=== PATIENT | female | born 1960 | race Caucasian/White ===

== ENCOUNTER 2019-12-11 15:13 | Inpatient (IN) | payer MEDICAID ==
[~2019-12-11] VITALS: Ht 157.5 cm; Wt 78.9 kg
[2019-12-11 17:54] LABS: BASO # 0.2 x10^3/uL (0.0-0.2); BASO % 1 % (0-3); EOS # 0.9 x10^3/uL (0.0-0.7); EOS % 7 % (0-3); HEMATOCRIT 45.8 % (36.0-47.0); HEMOGLOBIN 15.5 g/dL (12.0-15.5); LYMPH # 4.1 x10^3/uL (1.0-4.8); LYMPH % 30 % (24-48); MEAN CORPUSCULAR HEMOGLOBIN 31 pg (25-35); MEAN CORPUSCULAR HGB CONC 34 g/dL (31-37); MEAN CORPUSCULAR VOLUME 90 fL (79-100); MONO # 0.8 x10^3/uL (0.0-1.1); MONO % 6 % (0-9); NEUT # 7.5 x10^3/uL (1.8-7.7); NEUT % 55 % (31-73); PLATELET COUNT 164 x10^3/uL (140-400); RED BLOOD COUNT 5.09 x10^6/uL (3.50-5.40); RED CELL DISTRIBUTION WIDTH 14.1 % (11.5-14.5); WHITE BLOOD COUNT 13.5 x10^3/uL (4.0-11.0)
[2019-12-11 18:03] LABS: CALCIUM 9.6 mg/dL (8.5-10.1); CREATININE 0.8 mg/dL (0.6-1.0); GFR 73.4
[2019-12-11 18:09] LABS: ALBUMIN 3.2 g/dL (3.4-5.0); ALBUMIN/GLOBULIN RATIO 0.7 (1.0-1.7); TOTAL BILIRUBIN 0.2 mg/dL (0.2-1.0); TOTAL PROTEIN 7.5 g/dL (6.4-8.2)
--- NOTE | 2019-12-11 18:19 | RAD ---
INDICATION: Reason: Wound to R great toe for a month / Spl. Instructions: / History: COMPARISON: None. IMPRESSION: Right foot: 3 views obtained. The proximal aspect of the first distal phalanx plantar aspect there is a small lucency seen at the cortex. Differential considerations would include a vascular channel within the region but if this is the patient's region of the wound causes such as early osteomyelitis are not excluded. Would also correlate with trauma to ensure that this is not secondary to a nondisplaced fracture. Electronically signed by: Avel Nguyễn MD (12/11/2019 6:16 PM) [id number]
--- NOTE | 2019-12-11 18:36 | PHYS DOC ---
Past Medical History Past Medical History: Anxiety, Diabetes-Type II (DANNA PAINTER APRN) Past Surgical History: Other Additional Past Surgical Histo: "a stent in my private area" (DANNA PAINTER APRN) Smoking Status: Current Every Day Smoker Alcohol Use: None (DANNA PAINTER APRN) General Adult EDM: Chief Complaint: OTHER COMPLAINTS HPI: HPI: Patient is a 59 year old female who presents to the emergency department with complaints of a wound to the plantar surface of her right great toe that has been ongoing for a month. She denies any known injury to the affected area. Patient reports that she has decreased sensation in her first second and third toes of both of her feet. She denies any previous diagnosis of diabetes, however she reports that she has been told that she is prediabetic before. She denies any fever, cough, shortness of breath, wheezing, rash, abdominal pain, chest pain, palpitations, nausea, vomiting, or diarrhea. She currently denies any pain in her right foot at this time. She states that she has had body aches all over and has felt fatigued since yesterday. (DANNA PAINTER APRN) Review of Systems: Review of Systems: Constitutional: Denies fever or chills. [] HENT: Denies nasal congestion or sore throat. [] Respiratory: Denies cough or shortness of breath. [] Cardiovascular: Denies chest pain or edema. [] GI: Denies abdominal pain, nausea, vomiting, or diarrhea. [] Musculoskeletal: Denies back pain or joint pain. [] Integument: See HPI Neurologic: Denies headache, see HPI Endocrine: Denies polyuria or polydipsia. [] Lymphatic: Denies swollen glands. [] Psychiatric: Denies depression or anxiety. [] (DANNA PAINTER APRN) Heart Score: Risk Factors: Risk Factors: DM, Current or recent (<one month) smoker, HTN, HLP, family history of CAD, obesity. Risk Scores: Score 0 - 3: 2.5% MACE over next 6 weeks - Discharge Home Score 4 - 6: 20.3% MACE over next 6 weeks - Admit for Clinical Observation Score 7 - 10: 72.7% MACE over next 6 weeks - Early Invasive Strategies (DANNA PAINTER APRN) Allergies: Allergies: Allergies Coded Allergies Type Severity Reaction Last Updated Verified No Known Drug Allergies 12/11/19 No (DANNA PAINTER APRN) Physical Exam: PE: Constitutional: Well developed, well nourished, no acute distress, non-toxic appearance. [] HENT: Normocephalic, atraumatic, bilateral external ears normal, nose normal. [] Eyes: PERRLA, EOMI, conjunctiva normal, no discharge. [] Neck: Normal range of motion, no stridor. [] Cardiovascular:Heart rate regular rhythm Lungs & Thorax: Respirations even and unlabored, no retractions, no respiratory distress Skin: Warm, dry; 2 cm x 1 cm open wound to the plantar surface of the right great toe, no visible foreign body, no drainage/bleeding, mild surrounding tissue erythema and warmth. Extremities: No cyanosis, ROM intact, no edema. [] Neurologic: Alert and oriented X 3, no focal deficits noted, decreased sensiti vity to pinprick of bilateral first, second, and third toes, normal sensation in bilateral fourth, and fifth toes.. [] Psychologic: Affect normal, judgement normal, mood normal. [] (DANNA PAINTER APRN) Current Patient Data: Labs: Laboratory Tests Test 12/11/19 17:44 White Blood Count 13.5 x10^3/uL (4.0-11.0) H Red Blood Count 5.09 x10^6/uL (3.50-5.40) Hemoglobin 15.5 g/dL (12.0-15.5) Hematocrit 45.8 % (36.0-47.0) Mean Corpuscular Volume 90 fL (79-100) Mean Corpuscular Hemoglobin 31 pg (25-35) Mean Corpuscular Hemoglobin Concent 34 g/dL (31-37) Red Cell Distribution Width 14.1 % (11.5-14.5) Platelet Count 164 x10^3/uL (140-400) Neutrophils (%) (Auto) 55 % (31-73) Lymphocytes (%) (Auto) 30 % (24-48) Monocytes (%) (Auto) 6 % (0-9) Eosinophils (%) (Auto) 7 % (0-3) H Basophils (%) (Auto) 1 % (0-3) Neutrophils # (Auto) 7.5 x10^3/uL (1.8-7.7) Lymphocytes # (Auto) 4.1 x10^3/uL (1.0-4.8) Monocytes # (Auto) 0.8 x10^3/uL (0.0-1.1) Eosinophils # (Auto) 0.9 x10^3/uL (0.0-0.7) H Basophils # (Auto) 0.2 x10^3/uL (0.0-0.2) Sodium Level 141 mmol/L (136-145) Potassium Level 4.0 mmol/L (3.5-5.1) Chloride Level 103 mmol/L (98-107) Carbon Dioxide Level 31 mmol/L (21-32) Anion Gap 7 (6-14) Blood Urea Nitrogen 12 mg/dL (7-20) Creatinine 0.8 mg/dL (0.6-1.0) Estimated GFR (Cockcroft-Gault) 73.4 BUN/Creatinine Ratio 15 (6-20) Glucose Level 127 mg/dL (70-99) H Lactic Acid Level 1.7 mmol/L (0.4-2.0) Calcium Level 9.6 mg/dL (8.5-10.1) Total Bilirubin 0.2 mg/dL (0.2-1.0) Aspartate Amino Transferase (AST) 13 U/L (15-37) L Alanine Aminotransferase (ALT) 19 U/L (14-59) Alkaline Phosphatase 87 U/L (46-116) Total Protein 7.5 g/dL (6.4-8.2) Albumin 3.2 g/dL (3.4-5.0) L Albumin/Globulin Ratio 0.7 (1.0-1.7) L Laboratory Tests 12/11/19 17:44 Laboratory Tests 12/11/19 17:44 Vital Signs: Vital Signs Date Time Temp Pulse Resp B/P (MAP) Pulse Ox O2 Delivery O2 Flow Rate FiO2 12/11/19 16:58 98.6 90 16 158/77 (104) 96 Room Air 98.6 (DANNA PAINTER APRN) EKG: EKG: [] (DANNA PAINTER APRN) Radiology/Procedures: Radiology/Procedures: PROCEDURE: FOOT RIGHT 3V INDICATION: Reason: Wound to R great toe for a month / Spl. Instructions: / History: COMPARISON: None. IMPRESSION: Right foot: 3 views obtained. The proximal aspect of the first distal phalanx plantar aspect there is a small lucency seen at the cortex. Differential considerations would include a vascular channel within the region but if this is the patient's region of the wound causes such as early osteomyelitis are not excluded. Would also correlate with trauma to ensure that this is not secondary to a nondisplaced fracture. Electronically signed by: Avel Nguyễn MD (12/11/2019 6:16 PM) [] (DANNA PAINTER APRN) Course & Med Decision Making: Course & Med Decision Making Pertinent Labs and Imaging studies reviewed. (See chart for details) 1904-spoke with Dr. Dutton who is the admitting physician, and care was assumed following discussion of patient. Will admit patient to [facility] for osteomyelitis and a wound of the right great toe, will give patient 1 g of Ancef IV at this time. Patient's vital signs stable. Patient remains afebrile, appears nontoxic, respirations even and unlabored. [facility] Patient's case and plan of care also discussed with Dr. Coles [] (DANNA PAINTER APRN) Lisa Disclaimer: Lisa Disclaimer: This electronic medical record was generated, in whole or in part, using a voice recognition dictation system. (DANNA PAINTER APRN) Departure Departure Impression: Primary Impression: Osteomyelitis Qualified Codes: M86.9 - Osteomyelitis, unspecified Additional Impression: Toe ulcer, right Qualified Codes: L97.512 - Non-pressure chronic ulcer of other part of right foot with fat layer exposed Disposition: ADMITTED INPATIENT Admitting Physician: MICAELA (Marija) (DANNA PAINTER APRN) Condition: STABLE Referrals: BRONSON FLAHERTY (PCP) Justicifation of Admission Dx: Justifications for Admission: Justification of Admission Dx: Yes Comments: Nonhealing wound of right great foot, possible osteomyelitis (DANNA PAINTER APRN) Attending Signature Attending Signature I have reviewed the PA/MEDIA BUYER's note and plan of care. I was available for consultation as needed during the patient's visit in the emergency department. I agree with the clinical impression, plan, and disposition. (MIKE COLES DO) DANNA PAINTER APRN Dec 11, 2019 18:36 MIKE COLES DO Dec 12, 2019 01:47
--- NOTE | 2019-12-11 19:09 | PDOC1 ---
History and Physical Date of Admission Date of Admission DATE: 12/11/19 TIME: 19:07 Identification/Chief Complaint Chief Complaint SEEN IN ER WITH SUSPECTED OSTOMYELITIS OF GREAT TOE , 59 year old female who presents to the emergency department with complaints of a wound to the plantar surface of her right great toe that has been ongoing for a month. denies any known injury to the affected area. Patient reports that she has decreased sensation in her first second and third toes of both of her feet. HAS known diagnosis of diabetes, She denies any fever, cough, shortness of breath, wheezing, rash, abdominal pain, chest pain, palpitations, nausea, vomiting, or diarrhea. She currently denies any pain in her right foot Past Medical History Past Medical History Past Medical History Past Medical History: Anxiety, Diabetes-Type II Past Surgical History: Other Additional Past Surgical Histo: "a stent in my private area" Smoking Status: Current Every Day Smoker Alcohol Use: None fhx obesity Endocrine: Diabetes Family History Family History: High Cholestrol, Hypertension Social History Smoke: 1 pack per day ALCOHOL: none Drugs: None Allergies Allergies: Coded Allergies: No Known Drug Allergies (Unverified , 12/11/19) ROS Review of System Constitutional: Denies fever or chills. [] HENT: Denies nasal congestion or sore throat. [] Respiratory: Denies cough or shortness of breath. [] Cardiovascular: Denies chest pain or edema. [] GI: Denies abdominal pain, nausea, vomiting, or diarrhea. [] Musculoskeletal: Denies back pain or joint pain. [] Integument: See HPI Neurologic: Denies headache, see HPI Endocrine: Denies polyuria or polydipsia. [] Lymphatic: Denies swollen glands. [] Psychiatric: Denies depression or anxiety. [] 14 pt ros otherwise neg Eyes: No Blurry vision, No Decreased vision, No Double vision, No Dry eyes, No Excessive tearing, No Eye Pain, No Itchy Eyes, No Loss of vision, No Photophobia, No Scotomata, No Uses contacts, No Uses glasses, No Other ALLERGY AND IMMUNOLOGY: No: Hives, Insect Bite Sensitivity, Itchy/Watery Eyes, Nasal Congestion, Post Nasal Drip, Seasonal Allergies, Other Hematological and Lymphatic: No: Bleeding Problems, Blood Clots, Blood Transfusions, Brusing, Night Sweats, Pallor, Swollen Lymph Nodes, Other Respiratory: No: Cough, Hemoptysis, Orthopnea, Pleuritic Pain, Shortness of breath, SOB with excertion, Sputum Changes, Stridor, Tachypnea, Wheezing, Other Cardiovascular: No Chest Pain, No Palpitations, No Orthopnea, No Paroxysmal Noc. Dyspnea, No Edema, No Lt Headedness, No Other Gastrointestinal: No Nausea, No Vomiting, No Abdominal Pain, No Diarrhea, No Constipation, No Melena, No Hematochezia, No Other Musculoskeletal: Yes Gait Disturbance, Yes Joint Stiffness Neurological: Yes Gait Disturbance Physical Exam Physical Exam Constitutional: Well developed, well nourished, no acute distress, non-toxic appearance. [] HENT: Normocephalic, atraumatic, bilateral external ears normal, nose normal. [] Eyes: PERRLA, EOMI, conjunctiva normal, no discharge. [] Neck: Normal range of motion, no stridor. [] Cardiovascular:Heart rate regular rhythm Lungs & Thorax: Respirations even and unlabored, no retractions, no respiratory distress Skin: Warm, dry; 2 cm x 1 cm open wound to the plantar surface of the right great toe, no visible foreign body, no drainage/bleeding, mild surrounding tissue erythema and warmth. Extremities: No cyanosis, ROM intact, no edema. [] Neurologic: Alert and oriented X 3, no focal deficits noted, decreased sensitivity to pinprick of bilateral first, second, and third toes, normal sensation in bilateral fourth, and fifth toes.. [] Psychologic: Affect normal, judgment normal, mood normal. [] General: Alert, Oriented X3, Cooperative, No acute distress HEENT: EOMI Lungs: Clear to auscultation, Normal air movement Breasts: Not examined Abdomen: Normal bowel sounds, Soft Rectal Exam: not examined PELVIC: Examination not indicated Extremities: No cyanosis, No edema Neuro: Normal speech, Cranial nerves 3-12 NL Psych/Mental Status: Mental status NL, Mood NL Vitals Vitals Vital Signs Date Time Temp Pulse Resp B/P (MAP) Pulse Ox O2 Delivery O2 Flow Rate FiO2 12/11/19 16:58 98.6 90 16 158/77 (104) 96 Room Air 98.6 Labs Labs Laboratory Tests Test 12/11/19 17:44 White Blood Count 13.5 x10^3/uL (4.0-11.0) Red Blood Count 5.09 x10^6/uL (3.50-5.40) Hemoglobin 15.5 g/dL (12.0-15.5) Hematocrit 45.8 % (36.0-47.0) Mean Corpuscular Volume 90 fL (79-100) Mean Corpuscular Hemoglobin 31 pg (25-35) Mean Corpuscular Hemoglobin Concent 34 g/dL (31-37) Red Cell Distribution Width 14.1 % (11.5-14.5) Platelet Count 164 x10^3/uL (140-400) Neutrophils (%) (Auto) 55 % (31-73) Lymphocytes (%) (Auto) 30 % (24-48) Monocytes (%) (Auto) 6 % (0-9) Eosinophils (%) (Auto) 7 % (0-3) Basophils (%) (Auto) 1 % (0-3) Neutrophils # (Auto) 7.5 x10^3/uL (1.8-7.7) Lymphocytes # (Auto) 4.1 x10^3/uL (1.0-4.8) Monocytes # (Auto) 0.8 x10^3/uL (0.0-1.1) Eosinophils # (Auto) 0.9 x10^3/uL (0.0-0.7) Basophils # (Auto) 0.2 x10^3/uL (0.0-0.2) Sodium Level 141 mmol/L (136-145) Potassium Level 4.0 mmol/L (3.5-5.1) Chloride Level 103 mmol/L (98-107) Carbon Dioxide Level 31 mmol/L (21-32) Anion Gap 7 (6-14) Blood Urea Nitrogen 12 mg/dL (7-20) Creatinine 0.8 mg/dL (0.6-1.0) Estimated GFR (Cockcroft-Gault) 73.4 BUN/Creatinine Ratio 15 (6-20) Glucose Level 127 mg/dL (70-99) Lactic Acid Level 1.7 mmol/L (0.4-2.0) Calcium Level 9.6 mg/dL (8.5-10.1) Total Bilirubin 0.2 mg/dL (0.2-1.0) Aspartate Amino Transf (AST/SGOT) 13 U/L (15-37) Alanine Aminotransferase (ALT/SGPT) 19 U/L (14-59) Alkaline Phosphatase 87 U/L (46-116) Total Protein 7.5 g/dL (6.4-8.2) Albumin 3.2 g/dL (3.4-5.0) Albumin/Globulin Ratio 0.7 (1.0-1.7) Laboratory Tests Test 12/11/19 17:44 White Blood Count 13.5 x10^3/uL (4.0-11.0) Red Blood Count 5.09 x10^6/uL (3.50-5.40) Hemoglobin 15.5 g/dL (12.0-15.5) Hematocrit 45.8 % (36.0-47.0) Mean Corpuscular Volume 90 fL (79-100) Mean Corpuscular Hemoglobin 31 pg (25-35) Mean Corpuscular Hemoglobin Concent 34 g/dL (31-37) Red Cell Distribution Width 14.1 % (11.5-14.5) Platelet Count 164 x10^3/uL (140-400) Neutrophils (%) (Auto) 55 % (31-73) Lymphocytes (%) (Auto) 30 % (24-48) Monocytes (%) (Auto) 6 % (0-9) Eosinophils (%) (Auto) 7 % (0-3) Basophils (%) (Auto) 1 % (0-3) Neutrophils # (Auto) 7.5 x10^3/uL (1.8-7.7) Lymphocytes # (Auto) 4.1 x10^3/uL (1.0-4.8) Monocytes # (Auto) 0.8 x10^3/uL (0.0-1.1) Eosinophils # (Auto) 0.9 x10^3/uL (0.0-0.7) Basophils # (Auto) 0.2 x10^3/uL (0.0-0.2) Sodium Level 141 mmol/L (136-145) Potassium Level 4.0 mmol/L (3.5-5.1) Chloride Level 103 mmol/L (98-107) Carbon Dioxide Level 31 mmol/L (21-32) Anion Gap 7 (6-14) Blood Urea Nitrogen 12 mg/dL (7-20) Creatinine 0.8 mg/dL (0.6-1.0) Estimated GFR (Cockcroft-Gault) 73.4 BUN/Creatinine Ratio 15 (6-20) Glucose Level 127 mg/dL (70-99) Lactic Acid Level 1.7 mmol/L (0.4-2.0) Calcium Level 9.6 mg/dL (8.5-10.1) Total Bilirubin 0.2 mg/dL (0.2-1.0) Aspartate Amino Transf (AST/SGOT) 13 U/L (15-37) Alanine Aminotransferase (ALT/SGPT) 19 U/L (14-59) Alkaline Phosphatase 87 U/L (46-116) Total Protein 7.5 g/dL (6.4-8.2) Albumin 3.2 g/dL (3.4-5.0) Albumin/Globulin Ratio 0.7 (1.0-1.7) Images Images INDICATION: Reason: PVD /leg pain COMPARISON: None. FINDINGS: Spectral Doppler, color and grayscale ultrasound images obtained of the bilateral leg arterial system. Biphasic or triphasic waveforms are seen throughout bilateral leg arterial system. No evidence of high-grade stenosis or occlusion of the major arteries of the bilateral legs. IMPRESSION: * No high-grade stenosis or occlusion is seen of the major arteries of the bilateral legs. Electronically signed by: Aliya Nguyễn MD (12/11/2019 8:27 PM) [id number] DICTATED and SIGNED BY: ALIYA NGUYỄN MD DATE: 12/11/192026 INDICATION: Reason: Wound to R great toe for a month / Spl. Instructions: / History: COMPARISON: None. IMPRESSION: Right foot: 3 views obtained. The proximal aspect of the first distal phalanx plantar aspect there is a small lucency seen at the cortex. Differential considerations would include a vascular channel within the region but if this is the patient's region of the wound causes such as early osteomyelitis are not excluded. Would also correlate with trauma to ensure that this is not secondary to a nondisplaced fracture. Electronically signed by: Aliya Nguyễn MD (12/11/2019 6:16 PM) [id number] DICTATED and SIGNED BY: ALIYA NUGYỄN MD DATE: 12/11/191815 VTE Prophylaxis Ordered VTE Prophylaxis Devices: Contraindicated VTE Pharmacological Prophylaxi: Yes Assessment/Plan Assessment/Plan impression ON X-RAY proximal aspect of the first distal phalanx right great toe, plantar aspect there is a small lucency seen at the cortex. Differential considerations would include a vascular channel within the early osteomyelitis not excluded. No evidence of high-grade stenosis or occlusion of the major arteries of the bilateral legs. by arterial doppler 12/10 Diabetes Morbid obesity Tobacco abuse disorder PLAN ADMIT IV ROCEPHIN BLOOD CULTURES VANC PER PHARMACY iv ARTERIAL DOPPLER STUDY BOTH LEGS Consult DR NUNO dvt prophylaxis Justicifation of Admission Dx: Justifications for Admission: Justification of Admission Dx: Yes Cellulitis: Cellulitis FÉLIX GAN MD Dec 11, 2019 19:09
[2019-12-11] MEDS ORDERED: cloNIDine HCL 0.1 MG TABLET PO PRN (19:30)
[2019-12-11] MEDS ORDERED: ACETAMINOPHEN 325 MG TABLET. PO PRN (19:30)
[2019-12-11] MEDS ORDERED: ALBUTEROL SULFATE 2.5 MG/3 ML NEBU. NEB PRN (19:30)
[2019-12-11] MEDS ORDERED: guaiFENesin ORAL 200 MG/10 ML LIQUID. PO PRN (19:30)
[2019-12-11] MEDS ORDERED: ceFAZolin SODIUM IV Push 1 GM VIAL. IVP ONE (19:30)
[2019-12-11] MEDS ORDERED: 0.9 % SODIUM CHLORIDE 10 ML DISP.SYRIN. IV PRN (19:30)
[2019-12-11] MEDS ORDERED: DOCUSATE SODIUM 100 MG CAPSULE. PO PRN (19:30)
[2019-12-11] MEDS ORDERED: ONDANSETRON PF 4 MG/2 ML VIAL. IV PRN (19:30)
[2019-12-11] MEDS ORDERED: SODIUM PHOSPHATES 19/7GM 133 ML ENEMA. PR PRN (19:30)
[2019-12-11] MEDS ORDERED: LORazepam 0.5 MG TABLET PO PRN (19:30)
[2019-12-11] MEDS ORDERED: MAG HYDROX/ALUMINUM HYD/SIMETH 30 ML ORAL.SUSP PO PRN (19:30)
[2019-12-11] MEDS ORDERED: ZOLPIDEM 5 MG TABLET. PO PRN (19:30)
[2019-12-11] MEDS: IV NORMAL SALINE 1000ML BAG 1,000 ML IV SCH (19:33)
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
[2019-12-11 20:29] VITALS: BP 154/71
[2019-12-11] MEDS ORDERED: VANCOMYCIN 2 GM in IV NORMAL SALINE 500ML BAG 500 ML IV ONE (20:30)
--- NOTE | 2019-12-11 20:30 | RAD ---
INDICATION: Reason: PVD /leg pain COMPARISON: None. FINDINGS: Spectral Doppler, color and grayscale ultrasound images obtained of the bilateral leg arterial system. Biphasic or triphasic waveforms are seen throughout bilateral leg arterial system. No evidence of high-grade stenosis or occlusion of the major arteries of the bilateral legs. IMPRESSION: * No high-grade stenosis or occlusion is seen of the major arteries of the bilateral legs. Electronically signed by: Avel Nguyễn MD (12/11/2019 8:27 PM) [id number]
[2019-12-11] MEDS: VANCOMYCIN PER PHARMACY MC PRN (20:50)
--- NOTE | 2019-12-11 20:53 | NUR ---
Pharmacy Vancomycin Dosing Note S:Consulted to monitor and dose vancomycin started 12/11/19. O:ARABELLA OROSCO is a 59 year old F with Osteomyelitis. Height: 5 feet, 2 inches Weight: 79.0 kg [place] Body Weight: 50.10 Adjusted Body Weight: 61.66 Dosing Weight: Actual Other Antibiotics: ROCEPHIN LABS: Last BUN: 12 Last Creatinine: 0.8 Creatinine Clearance: 73 mL/min Last WBC: 13.5 Last Procalcitonin: Tmax (past 24 hours): 98.6 Vancomycin Dosing: Loading Dose: 2000 mg x1 Dosing Weight: Actual Target Trough: 15-20 A: Based on: weight and renal function P: 1. Begin Vancomycin 1250 mg IV q12h 2. Follow up Trough level on 12/13/19 at 0930 3. Pharmacy will continue to monitor, follow and adjust therapy as needed. Gem Clark RPH, 12/11/19 [id number]
[2019-12-11] MEDS: PIPERACILLIN/TAZOBACTAM 3.375 GM in IV NORMAL SALINE 50ML 50 ML IV SCH (22:17)
[2019-12-11] MEDS: ENOXAPARIN 40 MG/0.4 ML SYRINGE. SQ SCH (22:20)
[2019-12-11 23:00] VITALS: BP 128/71
[2019-12-12 03:00] VITALS: BP 150/68
[2019-12-12 04:52] LABS: BILIRUBIN,URINE NEGATIVE (NEG); CLARITY,URINE CLEAR; COLOR,URINE YELLOW; NITRITE,URINE NEGATIVE (NEG); PH,URINE 6.5 (<5.0-8.0); PROTEIN,URINE NEGATIVE (NEG-TRACE); UROBILINOGEN,URINE 0.2 mg/dL (0.2 mg/dL)
[2019-12-12 04:58] LABS: AMPHETAMINE/METHAMPHETAMINE NEG (NEG); BARBITURATES NEG (NEG); BENZODIAZEPINES POS (NEG); CANNABINOIDS POS (NEG); COCAINE NEG (NEG); METHADONE NEG (NEG); OPIATES NEG (NEG); PHENCYCLIDINE NEG (NEG)
[2019-12-12 05:03] LABS: BACTERIA,URINE 0 /HPF (0-FEW); RBC,URINE 0 /HPF (0-2); SQUAMOUS EPITHELIAL CELL,UR MOD /LPF
[2019-12-12] MEDS: PIPERACILLIN/TAZOBACTAM 3.375 GM in IV NORMAL SALINE 50ML 50 ML IV SCH ×3 (05:41→18:00)
[2019-12-12 07:00] VITALS: BP 153/75
[2019-12-12 08:12] LABS: CREATININE 0.8 mg/dL (0.6-1.0); GFR 73.4
[2019-12-12] MEDS: IV NORMAL SALINE 1000ML BAG 1,000 ML IV SCH ×2 (08:37→15:26)
[2019-12-12] MEDS: VANCOMYCIN 1.25 GM in IV NORMAL SALINE 250ML 250 ML IV SCH ×2 (10:24→22:04)
[2019-12-12 11:00] VITALS: BP 148/72
--- NOTE | 2019-12-12 11:57 | PDOC2 ---
CONSULT Date of Service Date of Service DATE: 12/12/19 TIME: 11:53 Reason for Consult Reason for Consult: Right great toe wound Identification/Chief Complaint Chief Complaint SEEN IN ER WITH SUSPECTED OSTOMYELITIS OF GREAT TOE , 59 year old female who presents to the emergency department with complaints of a wound to the plantar surface of her right great toe that has been ongoing for a month. denies any known injury to the affected area. Patient reports that she has decreased sensation in her first second and third toes of both of her feet. HAS known diagnosis of diabetes, She denies any fever, cough, shortness of breath, wheezing, rash, abdominal pain, chest pain, palpitations, nausea, vomiting, or diarrhea. She currently denies any pain in her right foot She denies any fevers, chills, rigors. She is not sure if she has diabetes tells me she may have prediabetes Source Source: Patient History of Present Illness Reason for Visit: 59-year-old woman who was admitted yesterday with a right great toe wound and concern for osteomyelitis. Her x-ray was nonspecific. She states that she has had the wound for about a week, is unsure what caused it, states that has not been getting better with placement of Neosporin. She does smoke, we discussed the need for smoking cessation. Past Medical History Endocrine: Diabetes Family History Family History: High Cholestrol, Hypertension Social History 1 pack per day ALCOHOL: none Drugs: None Current Problem List Problem List Problems Medical Problems: (1) Toe ulcer, right Status: Acute Current Medications Current Medications Current Medications Cefazolin Sodium (Ancef) 1 gm 1X ONCE IVP Last administered on 12/11/19at 19:32; Start 12/11/19 at 19:30; Stop 12/11/19 at 19:31; Status DC Sodium Chloride (Normal Saline Flush) 3 ml QSHIFT PRN IV AFTER MEDS AND BLOOD DRAWS; Start 12/11/19 at 19:30 Sodium Chloride 1,000 ml @ 100 mls/hr Q10H IV Last administered on 12/12/19at 08:37; Start 12/11/19 at 19:26 Ondansetron HCl (Zofran) 4 mg PRN Q4HRS PRN IV NAUSEA/VOMITING Last administered on 12/12/19at 10:28; Start 12/11/19 at 19:30 Zolpidem Tartrate (Ambien) 5 mg PRN QHS PRN PO INSOMNIA; Start 12/11/19 at 19:30 Acetaminophen (Tylenol) 650 mg PRN Q4HRS PRN PO TEMP OVER 100.4F OR MILD PAIN; Start 12/11/19 at 19:30 Al Hydroxide/Mg Hydroxide (Mylanta Plus Xs) 30 ml PRN DAILY PRN PO HEARTBURN / GAS; Start 12/11/19 at 19:30 Clonidine HCl (Catapres) 0.1 mg PRN Q6HRS PRN PO SBP>160 OR DBP>90; Start 12/11/19 at 19:30 Sodium Monofluorophosphate (Fleet Adult) 133 ml PRN DAILY PRN [place] CONSTIPATION; Start 12/11/19 at 19:30 Docusate Sodium (Colace) 100 mg PRN BID PRN PO HARD STOOLS; Start 12/11/19 at 19:30 Albuterol Sulfate (Ventolin Neb Soln) 2.5 mg PRN Q4HRS PRN NEB SHORTNESS OF BREATH; Start 12/11/19 at 19:30 Guaifenesin (Robitussin) 200 mg PRN Q4HRS PRN PO COUGH; Start 12/11/19 at 19:30 Lorazepam (Ativan) 0.5 mg PRN Q4HRS PRN PO ANXIETY / AGITATION; Start 12/11/19 at 19:30 Enoxaparin Sodium (Lovenox 40mg Syringe) 40 mg Q24H SQ Last administered on 12/11/19at 22:20; Start 12/11/19 at 21:00 Vancomycin HCl (Vanco Per Pharmacy) 1 each PRN DAILY PRN [facility] SEE COMMENTS Last administered on 12/11/19at 20:50; Start 12/11/19 at 19:30 Piperacillin Sod/ Tazobactam Sod 3.375 gm/Sodium Chloride 50 ml @ 100 mls/hr Q6HRS IV Last administered on 12/12/19at 05:41; Start 12/11/19 at 20:00 Vancomycin HCl 2 gm/Sodium Chloride 500 ml @ 250 mls/hr 1X ONCE IV Last administered on 12/11/19at 22:51; Start 12/11/19 at 20:30; Stop 12/11/19 at 22:29; Status DC Vancomycin HCl 1.25 gm/Sodium Chloride 250 ml @ 167 mls/hr Q12H IV Last administered on 12/12/19at 10:24; Start 12/12/19 at 10:00 Vancomycin HCl (Vancomycin Trough Level) 1 each 1X ONCE MC ; Start 12/13/19 at 09:30; Stop 12/13/19 at 09:31 Allergies Allergies: Coded Allergies: No Known Drug Allergies (Unverified , 12/11/19) Physical Exam Physical Exam Ulcer on the plantar aspect of the great toe, excellent 2+ palpable dorsalis pedis pulse same foot General: Alert, Oriented X3, Cooperative, No acute distress HEENT: Atraumatic, PERRLA Lungs: Clear to auscultation Heart: Regular rate, Normal S1, Normal S2, No murmurs Abdomen: Normal bowel sounds, Soft Extremities: No clubbing, No cyanosis, Normal pulses Skin: Other (Great toe lesion as described above otherwise no lesions) Neuro: Normal gait, Normal speech, Strength at 5/5 X4 ext, Normal tone, Cranial nerves 3-12 NL Psych/Mental Status: Mental status NL MUSCULOSKELETAL: No joint tenderness, No deformity, No swelling Vitals VITALS Vital Signs Date Time Temp Pulse Resp B/P (MAP) Pulse Ox O2 Delivery O2 Flow Rate FiO2 12/12/19 11:00 98.0 80 18 148/72 (97) 96 Room Air 98.0 12/11/19 23:00 2.0 Labs Labs Laboratory Tests Test 12/11/19 17:44 12/12/19 04:37 12/12/19 07:00 12/12/19 10:32 White Blood Count 13.5 x10^3/uL (4.0-11.0) Red Blood Count 5.09 x10^6/uL (3.50-5.40) Hemoglobin 15.5 g/dL (12.0-15.5) Hematocrit 45.8 % (36.0-47.0) Mean Corpuscular Volume 90 fL (79-100) Mean Corpuscular Hemoglobin 31 pg (25-35) Mean Corpuscular Hemoglobin Concent 34 g/dL (31-37) Red Cell Distribution Width 14.1 % (11.5-14.5) Platelet Count 164 x10^3/uL (140-400) Neutrophils (%) (Auto) 55 % (31-73) Lymphocytes (%) (Auto) 30 % (24-48) Monocytes (%) (Auto) 6 % (0-9) Eosinophils (%) (Auto) 7 % (0-3) Basophils (%) (Auto) 1 % (0-3) Neutrophils # (Auto) 7.5 x10^3/uL (1.8-7.7) Lymphocytes # (Auto) 4.1 x10^3/uL (1.0-4.8) Monocytes # (Auto) 0.8 x10^3/uL (0.0-1.1) Eosinophils # (Auto) 0.9 x10^3/uL (0.0-0.7) Basophils # (Auto) 0.2 x10^3/uL (0.0-0.2) Sodium Level 141 mmol/L (136-145) Potassium Level 4.0 mmol/L (3.5-5.1) Chloride Level 103 mmol/L (98-107) Carbon Dioxide Level 31 mmol/L (21-32) Anion Gap 7 (6-14) Blood Urea Nitrogen 12 mg/dL (7-20) Creatinine 0.8 mg/dL (0.6-1.0) 0.8 mg/dL (0.6-1.0) Estimated GFR (Cockcroft-Gault) 73.4 73.4 BUN/Creatinine Ratio 15 (6-20) Glucose Level 127 mg/dL (70-99) Lactic Acid Level 1.7 mmol/L (0.4-2.0) Calcium Level 9.6 mg/dL (8.5-10.1) Total Bilirubin 0.2 mg/dL (0.2-1.0) Aspartate Amino Transf (AST/SGOT) 13 U/L (15-37) Alanine Aminotransferase (ALT/SGPT) 19 U/L (14-59) Alkaline Phosphatase 87 U/L (46-116) Total Protein 7.5 g/dL (6.4-8.2) Albumin 3.2 g/dL (3.4-5.0) Albumin/Globulin Ratio 0.7 (1.0-1.7) Urine Collection Type Unknown Urine Color Yellow Urine Clarity Clear Urine pH 6.5 (<5.0-8.0) Urine Specific [place] 1.020 (1.000-1.030) Urine Protein Negative mg/dL (NEG-TRACE) Urine Glucose (UA) Negative mg/dL (NEG) Urine Ketones (Stick) Negative mg/dL (NEG) Urine Blood Negative (NEG) Urine Nitrite Negative (NEG) Urine Bilirubin Negative (NEG) Urine Urobilinogen Dipstick 0.2 mg/dL (0.2 mg/dL) Urine Leukocyte Esterase Negative (NEG) Urine RBC 0 /HPF (0-2) Urine WBC 1-4 /HPF (0-4) Urine Squamous Epithelial Cells Mod /LPF Urine Bacteria 0 /HPF (0-FEW) Urine Opiates Screen Neg (NEG) Urine Methadone Screen Neg (NEG) Urine Barbiturates Neg (NEG) Urine Phencyclidine Screen Neg (NEG) Urine Amphetamine/Methamphetamine Neg (NEG) Urine Benzodiazepines Screen Pos (NEG) Urine Cocaine Screen Neg (NEG) Urine Cannabinoids Screen Pos (NEG) Urine Ethyl Alcohol Neg (NEG) SARS-CoV-2 Antigen (Rapid) Negative (NEGATIVE) Laboratory Tests Test 12/11/19 17:44 12/12/19 04:37 12/12/19 07:00 12/12/19 10:32 White Blood Count 13.5 x10^3/uL (4.0-11.0) Red Blood Count 5.09 x10^6/uL (3.50-5.40) Hemoglobin 15.5 g/dL (12.0-15.5) Hematocrit 45.8 % (36.0-47.0) Mean Corpuscular Volume 90 fL (79-100) Mean Corpuscular Hemoglobin 31 pg (25-35) Mean Corpuscular Hemoglobin Concent 34 g/dL (31-37) Red Cell Distribution Width 14.1 % (11.5-14.5) Platelet Count 164 x10^3/uL (140-400) Neutrophils (%) (Auto) 55 % (31-73) Lymphocytes (%) (Auto) 30 % (24-48) Monocytes (%) (Auto) 6 % (0-9) Eosinophils (%) (Auto) 7 % (0-3) Basophils (%) (Auto) 1 % (0-3) Neutrophils # (Auto) 7.5 x10^3/uL (1.8-7.7) Lymphocytes # (Auto) 4.1 x10^3/uL (1.0-4.8) Monocytes # (Auto) 0.8 x10^3/uL (0.0-1.1) Eosinophils # (Auto) 0.9 x10^3/uL (0.0-0.7) Basophils # (Auto) 0.2 x10^3/uL (0.0-0.2) Sodium Level 141 mmol/L (136-145) Potassium Level 4.0 mmol/L (3.5-5.1) Chloride Level 103 mmol/L (98-107) Carbon Dioxide Level 31 mmol/L (21-32) Anion Gap 7 (6-14) Blood Urea Nitrogen 12 mg/dL (7-20) Creatinine 0.8 mg/dL (0.6-1.0) 0.8 mg/dL (0.6-1.0) Estimated GFR (Cockcroft-Gault) 73.4 73.4 BUN/Creatinine Ratio 15 (6-20) Glucose Level 127 mg/dL (70-99) Lactic Acid Level 1.7 mmol/L (0.4-2.0) Calcium Level 9.6 mg/dL (8.5-10.1) Total Bilirubin 0.2 mg/dL (0.2-1.0) Aspartate Amino Transf (AST/SGOT) 13 U/L (15-37) Alanine Aminotransferase (ALT/SGPT) 19 U/L (14-59) Alkaline Phosphatase 87 U/L (46-116) Total Protein 7.5 g/dL (6.4-8.2) Albumin 3.2 g/dL (3.4-5.0) Albumin/Globulin Ratio 0.7 (1.0-1.7) Urine Collection Type Unknown Urine Color Yellow Urine Clarity Clear Urine pH 6.5 (<5.0-8.0) Urine Specific [place] 1.020 (1.000-1.030) Urine Protein Negative mg/dL (NEG-TRACE) Urine Glucose (UA) Negative mg/dL (NEG) Urine Ketones (Stick) Negative mg/dL (NEG) Urine Blood Negative (NEG) Urine Nitrite Negative (NEG) Urine Bilirubin Negative (NEG) Urine Urobilinogen Dipstick 0.2 mg/dL (0.2 mg/dL) Urine Leukocyte Esterase Negative (NEG) Urine RBC 0 /HPF (0-2) Urine WBC 1-4 /HPF (0-4) Urine Squamous Epithelial Cells Mod /LPF Urine Bacteria 0 /HPF (0-FEW) Urine Opiates Screen Neg (NEG) Urine Methadone Screen Neg (NEG) Urine Barbiturates Neg (NEG) Urine Phencyclidine Screen Neg (NEG) Urine Amphetamine/Methamphetamine Neg (NEG) Urine Benzodiazepines Screen Pos (NEG) Urine Cocaine Screen Neg (NEG) Urine Cannabinoids Screen Pos (NEG) Urine Ethyl Alcohol Neg (NEG) SARS-CoV-2 Antigen (Rapid) Negative (NEGATIVE) Images Images I independently reviewed her arterial duplex todaythis does not suggest any significant arterial occlusive disease and is consistent with her physical exam with palpable pulses at the ankle We independently reviewed her plain films of the footthese are nonspecific and do not specifically confirm any diagnosis of osteomyelitis Assessment/Plan Assessment/Plan From a vascular standpoint she has adequate flow for wound healing. I discussed with her that if she has osteomyelitis in the toe that she will probably need toe amputation to resolve this. Given the nonspecific findings on the foot x-ray I ordered an MRI of the foot today. Further recommendations pending this. Recommend offloading the woundshe will need a forefoot wedge shoe/offloading shoe until the wound is healed regardless of whether this is treated at wound care or and surgery. Stop smoking Further recs after MRI results SHANIKA WU MD Dec 12, 2019 11:57
[2019-12-12] MEDS: VANCOMYCIN PER PHARMACY MC PRN (12:48)
--- NOTE | 2019-12-12 14:50 | PDOC ---
PROGRESS NOTES Date of Service: DATE: 12/12/19 TIME: 14:48 Chief Complaint Chief Complaint cellulitis in Dm2 early osteomyelitis not excluded. Diabetes 2 obesity, BMi 31.8 Tobacco abuse disorder History of Present Illness History of Present Illness IV ROCEPHIN BLOOD CULTURES has been seen by vasc surg, cont IV abx, wound care if MRI clear, will DC in am, cont current Vitals Vitals Vital Signs Date Time Temp Pulse Resp B/P (MAP) Pulse Ox O2 Delivery O2 Flow Rate FiO2 12/12/19 11:00 98.0 80 18 148/72 (97) 96 Room Air 98.0 12/11/19 23:00 2.0 Physical Exam General: Alert, Oriented X3, Cooperative, No acute distress Heart: Regular rate, Normal S1, Normal S2, No murmurs Abdomen: Normal bowel sounds, Soft Extremities: No clubbing, No cyanosis, Normal pulses Skin: Other (Great toe lesion as described above otherwise no lesions) Labs LABS Laboratory Tests Test 12/11/19 17:44 12/12/19 04:37 12/12/19 07:00 12/12/19 10:32 White Blood Count 13.5 x10^3/uL (4.0-11.0) Red Blood Count 5.09 x10^6/uL (3.50-5.40) Hemoglobin 15.5 g/dL (12.0-15.5) Hematocrit 45.8 % (36.0-47.0) Mean Corpuscular Volume 90 fL (79-100) Mean Corpuscular Hemoglobin 31 pg (25-35) Mean Corpuscular Hemoglobin Concent 34 g/dL (31-37) Red Cell Distribution Width 14.1 % (11.5-14.5) Platelet Count 164 x10^3/uL (140-400) Neutrophils (%) (Auto) 55 % (31-73) Lymphocytes (%) (Auto) 30 % (24-48) Monocytes (%) (Auto) 6 % (0-9) Eosinophils (%) (Auto) 7 % (0-3) Basophils (%) (Auto) 1 % (0-3) Neutrophils # (Auto) 7.5 x10^3/uL (1.8-7.7) Lymphocytes # (Auto) 4.1 x10^3/uL (1.0-4.8) Monocytes # (Auto) 0.8 x10^3/uL (0.0-1.1) Eosinophils # (Auto) 0.9 x10^3/uL (0.0-0.7) Basophils # (Auto) 0.2 x10^3/uL (0.0-0.2) Sodium Level 141 mmol/L (136-145) Potassium Level 4.0 mmol/L (3.5-5.1) Chloride Level 103 mmol/L (98-107) Carbon Dioxide Level 31 mmol/L (21-32) Anion Gap 7 (6-14) Blood Urea Nitrogen 12 mg/dL (7-20) Creatinine 0.8 mg/dL (0.6-1.0) 0.8 mg/dL (0.6-1.0) Estimated GFR (Cockcroft-Gault) 73.4 73.4 BUN/Creatinine Ratio 15 (6-20) Glucose Level 127 mg/dL (70-99) Lactic Acid Level 1.7 mmol/L (0.4-2.0) Calcium Level 9.6 mg/dL (8.5-10.1) Total Bilirubin 0.2 mg/dL (0.2-1.0) Aspartate Amino Transf (AST/SGOT) 13 U/L (15-37) Alanine Aminotransferase (ALT/SGPT) 19 U/L (14-59) Alkaline Phosphatase 87 U/L (46-116) Total Protein 7.5 g/dL (6.4-8.2) Albumin 3.2 g/dL (3.4-5.0) Albumin/Globulin Ratio 0.7 (1.0-1.7) Urine Collection Type Unknown Urine Color Yellow Urine Clarity Clear Urine pH 6.5 (<5.0-8.0) Urine Specific [place] 1.020 (1.000-1.030) Urine Protein Negative mg/dL (NEG-TRACE) Urine Glucose (UA) Negative mg/dL (NEG) Urine Ketones (Stick) Negative mg/dL (NEG) Urine Blood Negative (NEG) Urine Nitrite Negative (NEG) Urine Bilirubin Negative (NEG) Urine Urobilinogen Dipstick 0.2 mg/dL (0.2 mg/dL) Urine Leukocyte Esterase Negative (NEG) Urine RBC 0 /HPF (0-2) Urine WBC 1-4 /HPF (0-4) Urine Squamous Epithelial Cells Mod /LPF Urine Bacteria 0 /HPF (0-FEW) Urine Opiates Screen Neg (NEG) Urine Methadone Screen Neg (NEG) Urine Barbiturates Neg (NEG) Urine Phencyclidine Screen Neg (NEG) Urine Amphetamine/Methamphetamine Neg (NEG) Urine Benzodiazepines Screen Pos (NEG) Urine Cocaine Screen Neg (NEG) Urine Cannabinoids Screen Pos (NEG) Urine Ethyl Alcohol Neg (NEG) SARS-CoV-2 Antigen (Rapid) Negative (NEGATIVE) Assessment and Plan Assessmemt and Plan Problems Medical Problems: (1) Toe ulcer, right Status: Acute Comment Review of Relevant I have reviewed the following items brandon (where applicable) has been applied. Labs Laboratory Tests Test 12/11/19 17:44 12/12/19 04:37 12/12/19 07:00 12/12/19 10:32 White Blood Count 13.5 x10^3/uL (4.0-11.0) Red Blood Count 5.09 x10^6/uL (3.50-5.40) Hemoglobin 15.5 g/dL (12.0-15.5) Hematocrit 45.8 % (36.0-47.0) Mean Corpuscular Volume 90 fL (79-100) Mean Corpuscular Hemoglobin 31 pg (25-35) Mean Corpuscular Hemoglobin Concent 34 g/dL (31-37) Red Cell Distribution Width 14.1 % (11.5-14.5) Platelet Count 164 x10^3/uL (140-400) Neutrophils (%) (Auto) 55 % (31-73) Lymphocytes (%) (Auto) 30 % (24-48) Monocytes (%) (Auto) 6 % (0-9) Eosinophils (%) (Auto) 7 % (0-3) Basophils (%) (Auto) 1 % (0-3) Neutrophils # (Auto) 7.5 x10^3/uL (1.8-7.7) Lymphocytes # (Auto) 4.1 x10^3/uL (1.0-4.8) Monocytes # (Auto) 0.8 x10^3/uL (0.0-1.1) Eosinophils # (Auto) 0.9 x10^3/uL (0.0-0.7) Basophils # (Auto) 0.2 x10^3/uL (0.0-0.2) Sodium Level 141 mmol/L (136-145) Potassium Level 4.0 mmol/L (3.5-5.1) Chloride Level 103 mmol/L (98-107) Carbon Dioxide Level 31 mmol/L (21-32) Anion Gap 7 (6-14) Blood Urea Nitrogen 12 mg/dL (7-20) Creatinine 0.8 mg/dL (0.6-1.0) 0.8 mg/dL (0.6-1.0) Estimated GFR (Cockcroft-Gault) 73.4 73.4 BUN/Creatinine Ratio 15 (6-20) Glucose Level 127 mg/dL (70-99) Lactic Acid Level 1.7 mmol/L (0.4-2.0) Calcium Level 9.6 mg/dL (8.5-10.1) Total Bilirubin 0.2 mg/dL (0.2-1.0) Aspartate Amino Transf (AST/SGOT) 13 U/L (15-37) Alanine Aminotransferase (ALT/SGPT) 19 U/L (14-59) Alkaline Phosphatase 87 U/L (46-116) Total Protein 7.5 g/dL (6.4-8.2) Albumin 3.2 g/dL (3.4-5.0) Albumin/Globulin Ratio 0.7 (1.0-1.7) Urine Collection Type Unknown Urine Color Yellow Urine Clarity Clear Urine pH 6.5 (<5.0-8.0) Urine Specific [place] 1.020 (1.000-1.030) Urine Protein Negative mg/dL (NEG-TRACE) Urine Glucose (UA) Negative mg/dL (NEG) Urine Ketones (Stick) Negative mg/dL (NEG) Urine Blood Negative (NEG) Urine Nitrite Negative (NEG) Urine Bilirubin Negative (NEG) Urine Urobilinogen Dipstick 0.2 mg/dL (0.2 mg/dL) Urine Leukocyte Esterase Negative (NEG) Urine RBC 0 /HPF (0-2) Urine WBC 1-4 /HPF (0-4) Urine Squamous Epithelial Cells Mod /LPF Urine Bacteria 0 /HPF (0-FEW) Urine Opiates Screen Neg (NEG) Urine Methadone Screen Neg (NEG) Urine Barbiturates Neg (NEG) Urine Phencyclidine Screen Neg (NEG) Urine Amphetamine/Methamphetamine Neg (NEG) Urine Benzodiazepines Screen Pos (NEG) Urine Cocaine Screen Neg (NEG) Urine Cannabinoids Screen Pos (NEG) Urine Ethyl Alcohol Neg (NEG) SARS-CoV-2 Antigen (Rapid) Negative (NEGATIVE) Laboratory Tests Test 12/11/19 17:44 12/12/19 04:37 12/12/19 07:00 12/12/19 10:32 White Blood Count 13.5 x10^3/uL (4.0-11.0) Red Blood Count 5.09 x10^6/uL (3.50-5.40) Hemoglobin 15.5 g/dL (12.0-15.5) Hematocrit 45.8 % (36.0-47.0) Mean Corpuscular Volume 90 fL (79-100) Mean Corpuscular Hemoglobin 31 pg (25-35) Mean Corpuscular Hemoglobin Concent 34 g/dL (31-37) Red Cell Distribution Width 14.1 % (11.5-14.5) Platelet Count 164 x10^3/uL (140-400) Neutrophils (%) (Auto) 55 % (31-73) Lymphocytes (%) (Auto) 30 % (24-48) Monocytes (%) (Auto) 6 % (0-9) Eosinophils (%) (Auto) 7 % (0-3) Basophils (%) (Auto) 1 % (0-3) Neutrophils # (Auto) 7.5 x10^3/uL (1.8-7.7) Lymphocytes # (Auto) 4.1 x10^3/uL (1.0-4.8) Monocytes # (Auto) 0.8 x10^3/uL (0.0-1.1) Eosinophils # (Auto) 0.9 x10^3/uL (0.0-0.7) Basophils # (Auto) 0.2 x10^3/uL (0.0-0.2) Sodium Level 141 mmol/L (136-145) Potassium Level 4.0 mmol/L (3.5-5.1) Chloride Level 103 mmol/L (98-107) Carbon Dioxide Level 31 mmol/L (21-32) Anion Gap 7 (6-14) Blood Urea Nitrogen 12 mg/dL (7-20) Creatinine 0.8 mg/dL (0.6-1.0) 0.8 mg/dL (0.6-1.0) Estimated GFR (Cockcroft-Gault) 73.4 73.4 BUN/Creatinine Ratio 15 (6-20) Glucose Level 127 mg/dL (70-99) Lactic Acid Level 1.7 mmol/L (0.4-2.0) Calcium Level 9.6 mg/dL (8.5-10.1) Total Bilirubin 0.2 mg/dL (0.2-1.0) Aspartate Amino Transf (AST/SGOT) 13 U/L (15-37) Alanine Aminotransferase (ALT/SGPT) 19 U/L (14-59) Alkaline Phosphatase 87 U/L (46-116) Total Protein 7.5 g/dL (6.4-8.2) Albumin 3.2 g/dL (3.4-5.0) Albumin/Globulin Ratio 0.7 (1.0-1.7) Urine Collection Type Unknown Urine Color Yellow Urine Clarity Clear Urine pH 6.5 (<5.0-8.0) Urine Specific [place] 1.020 (1.000-1.030) Urine Protein Negative mg/dL (NEG-TRACE) Urine Glucose (UA) Negative mg/dL (NEG) Urine Ketones (Stick) Negative mg/dL (NEG) Urine Blood Negative (NEG) Urine Nitrite Negative (NEG) Urine Bilirubin Negative (NEG) Urine Urobilinogen Dipstick 0.2 mg/dL (0.2 mg/dL) Urine Leukocyte Esterase Negative (NEG) Urine RBC 0 /HPF (0-2) Urine WBC 1-4 /HPF (0-4) Urine Squamous Epithelial Cells Mod /LPF Urine Bacteria 0 /HPF (0-FEW) Urine Opiates Screen Neg (NEG) Urine Methadone Screen Neg (NEG) Urine Barbiturates Neg (NEG) Urine Phencyclidine Screen Neg (NEG) Urine Amphetamine/Methamphetamine Neg (NEG) Urine Benzodiazepines Screen Pos (NEG) Urine Cocaine Screen Neg (NEG) Urine Cannabinoids Screen Pos (NEG) Urine Ethyl Alcohol Neg (NEG) SARS-CoV-2 Antigen (Rapid) Negative (NEGATIVE) Medications Current Medications Cefazolin Sodium (Ancef) 1 gm 1X ONCE IVP Last administered on 12/11/19at 19:32; Start 12/11/19 at 19:30; Stop 12/11/19 at 19:31; Status DC Sodium Chloride (Normal Saline Flush) 3 ml QSHIFT PRN IV AFTER MEDS AND BLOOD DRAWS; Start 12/11/19 at 19:30 Sodium Chloride 1,000 ml @ 100 mls/hr Q10H IV Last administered on 12/12/19at 08:37; Start 12/11/19 at 19:26 Ondansetron HCl (Zofran) 4 mg PRN Q4HRS PRN IV NAUSEA/VOMITING Last administered on 12/12/19at 10:28; Start 12/11/19 at 19:30 Zolpidem Tartrate (Ambien) 5 mg PRN QHS PRN PO INSOMNIA; Start 12/11/19 at 19:30 Acetaminophen (Tylenol) 650 mg PRN Q4HRS PRN PO TEMP OVER 100.4F OR MILD PAIN; Start 12/11/19 at 19:30 Al Hydroxide/Mg Hydroxide (Mylanta Plus Xs) 30 ml PRN DAILY PRN PO HEARTBURN / GAS; Start 12/11/19 at 19:30 Clonidine HCl (Catapres) 0.1 mg PRN Q6HRS PRN PO SBP>160 OR DBP>90; Start 12/11/19 at 19:30 Sodium Monofluorophosphate (Fleet Adult) 133 ml PRN DAILY PRN [place] CONSTIPATION; Start 12/11/19 at 19:30 Docusate Sodium (Colace) 100 mg PRN BID PRN PO HARD STOOLS; Start 12/11/19 at 19:30 Albuterol Sulfate (Ventolin Neb Soln) 2.5 mg PRN Q4HRS PRN NEB SHORTNESS OF BREATH; Start 12/11/19 at 19:30 Guaifenesin (Robitussin) 200 mg PRN Q4HRS PRN PO COUGH; Start 12/11/19 at 19:30 Lorazepam (Ativan) 0.5 mg PRN Q4HRS PRN PO ANXIETY / AGITATION; Start 12/11/19 at 19:30 Enoxaparin Sodium (Lovenox 40mg Syringe) 40 mg Q24H SQ Last administered on 12/11/19at 22:20; Start 12/11/19 at 21:00 Vancomycin HCl (Vanco Per Pharmacy) 1 each PRN DAILY PRN MC SEE COMMENTS Last administered on 12/12/19at 12:48; Start 12/11/19 at 19:30 Piperacillin Sod/ Tazobactam Sod 3.375 gm/Sodium Chloride 50 ml @ 100 mls/hr Q6HRS IV Last administered on 12/12/19at 05:41; Start 12/11/19 at 20:00 Vancomycin HCl 2 gm/Sodium Chloride 500 ml @ 250 mls/hr 1X ONCE IV Last administered on 12/11/19at 22:51; Start 12/11/19 at 20:30; Stop 12/11/19 at 22:29; Status DC Vancomycin HCl 1.25 gm/Sodium Chloride 250 ml @ 167 mls/hr Q12H IV Last administered on 12/12/19at 10:24; Start 12/12/19 at 10:00 Vancomycin HCl (Vancomycin Trough Level) 1 each 1X ONCE MC ; Start 12/13/19 at 09:30; Stop 12/13/19 at 09:31 Lactobacillus Rhamnosus (Culturelle) 1 cap BID PO ; Start 12/12/19 at 21:00 Vitals/I & O Vital Sign - Last 24 Hours 12/11/19 12/11/19 12/11/19 12/11/19 16:58 17:26 17:56 18:26 Temp 98.6 98.6 Pulse 90 84 82 82 Resp 16 B/P (MAP) 158/77 (104) 137/76 (96) 132/71 (91) 136/71 (92) Pulse Ox 96 95 93 93 O2 Delivery Room Air Room Air Room Air Room Air 12/11/19 12/11/19 12/11/19 12/12/19 20:25 20:29 23:00 03:00 Temp 98.4 98.1 98.0 98.4 98.1 98.0 Pulse 78 85 84 Resp 19 17 19 B/P (MAP) 154/71 (98) 128/71 (90) 150/68 (95) Pulse Ox 94 93 92 O2 Delivery Room Air Room Air Nasal Cannula Room Air O2 Flow Rate 2.0 12/12/19 12/12/19 12/12/19 07:00 08:00 11:00 Temp 97.9 98.0 97.9 98.0 Pulse 78 80 Resp 18 18 B/P (MAP) 153/75 (101) 148/72 (97) Pulse Ox 96 96 O2 Delivery Room Air Room Air Room Air Intake and Output 12/11/19 12/11/19 12/12/19 15:00 23:00 07:00 Intake Total 300 ml Output Total 300 ml Balance 0 ml Justicifation of Admission Dx: Justifications for Admission: Justification of Admission Dx: Yes Cellulitis: Cellulitis MONAE RAMOS MD Dec 12, 2019 14:50
[2019-12-12 15:00] VITALS: BP 140/68
--- NOTE | 2019-12-12 15:00 | NUR ---
Wound Care: Pt off unit, wound care will follow up tomorrow 12/11 after MRI.
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
--- NOTE | 2019-12-12 17:05 | RAD ---
STUDY: MRI of the right foot without contrast INDICATION: Great toe osteomyelitis. COMPARISON: 12/11/2019 radiographs. TECHNIQUE: Multiplanar MR imaging of the right foot performed without the use of intravenous contrast. FINDINGS: Small, nondisplaced fracture at the plantar/medial margin of the great toe distal phalanx extending into the IP joint, image 3 series 9. Faint T2 signal elevation within the fracture defect but there is minimal if any marrow edema surrounding the fracture making osteomyelitis unlikely. Ulcerative wound at the plantar great toe in the region of this fracture but no discrete fluid signal tract is seen to extend towards the bone, noting hindered assessment without contrast. Bipartite medial hallux sesamoid without marrow edema. Fatty infiltration of the intrinsic foot musculature and muscular edema as can be seen with long-standing diabetes. IMPRESSION: Nondisplaced fracture at the base of the great toe distal phalanx extending into the IP joint. There is a plantar foot ulcer at the location of this fracture but no discrete sinus tract is seen extending to bone nor marrow signal changes that would suggest osteomyelitis. The evaluation is limited without contrast but the fracture is favored subacute and traumatic in etiology as opposed to a pathologic fracture from osteomyelitis. Electronically signed by: TAMANNA CABEZAS MD (12/12/2019 5:03 PM) [id number]
[2019-12-12 19:00] VITALS: BP 129/57
[2019-12-12] MEDS: LACTOBACILLUS RHAMNOSUS GG 1 CAPSULE. PO SCH (20:34)
[2019-12-12] MEDS: ENOXAPARIN 40 MG/0.4 ML SYRINGE. SQ SCH (21:00)
[2019-12-12] MEDS: oxyCODONE/APAP 5/325 1 TAB TABLET PO PRN (21:06)
--- NOTE | 2019-12-12 21:41 | NUR ---
Patient has voiced to me that she does not want surgery tomorrow. Patient wanting to go home tomorrow and try antibiotics at home and follow up with her primary care doctor. Encouraged patient to speak to doctors in the morning about her concerns.
[2019-12-12 23:00] VITALS: BP 124/70
[2019-12-13] MEDS: IV NORMAL SALINE 1000ML BAG 1,000 ML IV SCH ×2 (00:05→09:57)
[2019-12-13 03:00] VITALS: BP 123/58
[2019-12-13] MEDS: oxyCODONE/APAP 5/325 1 TAB TABLET PO PRN (04:42)
[2019-12-13] MEDS: PIPERACILLIN/TAZOBACTAM 3.375 GM in IV NORMAL SALINE 50ML 50 ML IV SCH ×3 (06:04→11:27)
[2019-12-13 07:00] VITALS: BP 119/50
--- NOTE | 2019-12-13 08:34 | PDOC ---
Provider Note Date of Service: DATE: 12/13/19 TIME: 08:21 Provider Note Provider Note Vascular S: Patient complains of pain in right first toe. She has several questions regarding managing her diabetes. States she has been told she has "prediabetes". O: Awake and alert VSS, afebrile Right first toe with mild swelling, minimal erythema, wound bed pink, edges slightly macerated, no drainage. 2+ DP pulse. A/P: 59 year old female with first toe ulcer. MRI reviewed, this does not suggest any osteomyelitis. There is a fracture in distal phalanx. We do not recommend amputation at this time would continue local wound care and follow up with WC team. Abx per Hospitalist. Discussed with nurse could consult Ortho with regards to toe fracture if needed will defer to Hospitalist. Front off-loading 1/2 shoe BG 127, patient would benefit from Nutritional Consult. Patient will need blood glucose control for wound healing. Tobacco cessation. Will sign off. Please notify us if clinical status changes. Justicifation of Admission Dx: Justifications for Admission: Justification of Admission Dx: Yes Cellulitis: Cellulitis ASHWINI KINCAID [employer] Dec 13, 2019 08:34
[2019-12-13 09:44] LABS: CREATININE 0.9 mg/dL (0.6-1.0); GFR 64.1
[2019-12-13 09:52] LABS: VANC TR 17.1 mcg/mL (10.0-20.0)
[2019-12-13] MEDS: VANCOMYCIN 1.25 GM in IV NORMAL SALINE 250ML 250 ML IV SCH (09:53)
[2019-12-13] MEDS: LACTOBACILLUS RHAMNOSUS GG 1 CAPSULE. PO SCH (09:53)
[2019-12-13] MEDS ORDERED: AMOX1TAB61 PO (10:56)
[2019-12-13 10:58] VITALS: BP 122/64
[2019-12-13] MEDS ORDERED: MULTIVITAMIN with MINERAL TABLET. PO SCH (11:00)
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
[2019-12-13] MEDS: VANCOMYCIN PER PHARMACY MC PRN (12:41)
--- NOTE | 2019-12-13 12:44 | NUR ---
Pharmacy Vancomycin Dosing Note S:Consulted to monitor and dose vancomycin started 12/11/19. O:ARABELLA OROSCO is a 59 year old F with Osteomyelitis . Height: 5 feet, 2 inches Weight: 78.668870 kg [place] Body Weight: 50.10 Adjusted Body Weight: 61.66 Dosing Weight: Actual Other Antibiotics: ZOSYN LABS: Last BUN: 12 Last Creatinine: 0.9 Creatinine Clearance: 73 mL/min Last WBC: 13.5 Last Procalcitonin: - Tmax (past 24 hours): 98.6 Microbiology: 12/12 NGTD BCX I/O: 2880/3 VOIDS Drug Levels: Last Trough level: 17.1 on 12/13/19 at 0915 Last dose given 12/12/19 at 1024 Vancomycin Dosing: Loading Dose: 2000 mg x1 Dosing Weight: Actual Target Trough: 15-20 A: Based on: THERAPEUTIC LEVEL, P: 1. CONTINUE DOSE Vancomycin 1250 mg IV q12h 2. Follow up Trough level NEEDED. 3. Pharmacy will continue to monitor, follow and adjust therapy as needed. CHETAN HALL [facility] [place], 12/13/19 [id number]
--- NOTE | 2019-12-13 13:23 | NUR ---
Discharge instructions and belongings reviewed with patient, verbalized understanding. Patient escorted out via wheelchair by Hue IZQUIERDO
== END 2019-12-13 13:24 | disposition home or self-care (01) | DRG 638 ==
LOC: EDBD 15:13 → ER 15:13 → 4 NORTH 19:05
PROVIDERS: ADMIT Family Medicine; ATTEND Family Medicine
DX: E11.69 Type 2 diabetes mellitus with other specified complication (principal); M86.9 Osteomyelitis, unspecified; E11.621 Type 2 diabetes mellitus with foot ulcer; E66.01 Morbid (severe) obesity due to excess calories; Z68.31 Body mass index [BMI] 31.0-31.9, adult; L97.512 Non-pressure chronic ulcer of other part of right foot with fat layer exposed; F41.9 Anxiety disorder, unspecified; F17.210 Nicotine dependence, cigarettes, uncomplicated; Z20.828 Contact with and (suspected) exposure to other viral communicable diseases; Z82.49 Family history of ischemic heart disease and other diseases of the circulatory system
CPT/HCPCS: 36415; 73630; 73718; 80053; 80202; 80307; 81001; 82565; 83605; 85025; 87040; 87426; 93925; 99406; J0690; J1650; J2405; J2543; J3370; J7030; J7040; J7050; 99285-25; G0378; U0003-CS